=== PATIENT | male | born 1980 | race American Indian/Alaskan Native ===

== ENCOUNTER 2019-02-16 09:21 | Outpatient (CLI) | payer OTHER ==
[2019-02-16 10:36] LABS: Blood Urea Nitrogen 9 mg/dL (9-20)
--- NOTE | 2019-02-16 13:54 | Cat Scan Report ---
CT NECK WITH AND WITHOUT CONTRAST INDICATION: Left neck lump. COMPARISON: None similar at this institution. FINDINGS: Neck CT performed before and after IV contrast demonstrates preserved parapharyngeal fat pads. Grossly normal pharynx, hypopharynx and the larynx. Normal size thyroid. Patent airway. Clear lung apices. No size significant adenopathy with few small neck lymph nodes noted bilaterally as level II measuring up to 1.3 cm on axial image 107, series 4. Grossly normal major vessels. Normal salivary glands. Mild nasal septal deviation as on axial image 59, amongst others. Approximately 2.7 cm right maxillary sinus mucus retention cyst. Clear remainder imaged paranasal sinuses and mastoid air cells. Normal eye globes. Normal imaged intracranial appearance. Mild C5-C7 degenerative changes incidentally noted as mild spurring and a 0.7 cm Schmorl's node along C7 superior endplate. CONCLUSION: No acute neck CT abnormality with few other findings, including right maxillary sinus disease and lower cervical spine degenerative changes, as above. Please correlate. Thank you for the opportunity to participate in this patient's care.
== END 2019-02-16 09:22 | disposition home or self-care (01) ==
LOC: EEVIPCON 09:21 → CT 09:21
PROVIDERS: ATTEND Family Medicine
DX: M47.812 Spondylosis without myelopathy or radiculopathy, cervical region (principal); J32.0 Chronic maxillary sinusitis
CPT/HCPCS: 36415; 70492; 82565; 84520; Q9967